=== PATIENT | male | born 1955 | race Caucasian/White ===

== ENCOUNTER → 2023-06-24 10:05 | Outpatient (REF) | payer MEDICARE, OTHER, SELFPAY | LOC: SDSPAT 10:05 | PROVIDERS: ATTENDING PHYSICIAN Surgery; FAMILY PHYSICIAN Registered Nurse | DX: K40.90 Unilateral inguinal hernia, without obstruction or gangrene, not specified as recurrent (principal) | CPT/HCPCS: 36415; 93005 ==